=== PATIENT | female | born 1950 ===

== ENCOUNTER → 2018-01-29 | Emergency (ER) | payer OTHER ==
[~2018-01-29] VITALS: Ht 162.6 cm; Wt 77.1 kg
[~2018-01-29] MED LIST: ALBUTEROL0.63 MG/3; ANTIVERT25 M1 PO; ASA-EC81 MG; ASPIR 8181 MG; FORTAMET1000 MG; GLIMEPIRIDE2 MG; LOSARTAN-HCTZ1 EAC2; METOPROLOL ER-1 EAC1; PLAVIX75 MG; RAZADYNE ER24 MG; SIMVASTATIN20 MG; ZOCOR40 MG
== END | disposition designated cancer center or children's hospital (05) ==
LOC: ER 14:16
DX: S06.5X0A Traumatic subdural hemorrhage without loss of consciousness, initial encounter (principal); R55 Syncope and collapse; X58.XXXA Exposure to other specified factors, initial encounter; Y93.89 Activity, other specified; Y92.89 Other specified places as the place of occurrence of the external cause; Y99.8 Other external cause status; I10 Essential (primary) hypertension